=== PATIENT | male | born 1965 | race Caucasian/White ===

== ENCOUNTER 2024-11-13 14:26 | Inpatient (IN) | payer OTHER ==
[~2024-11-13] VITALS: Ht 172.7 cm; Wt 68.2 kg
[2024-11-13 17:35] LABS: BASOPHILS % (AUTO) 0.8 % (0.0-2.0); EOSINOPHILS % (AUTO) 1.9 % (1.0-6.0); HEMATOCRIT 44.4 % (41-53); HEMOGLOBIN 15.2 g/dL (13.5-17.5); LYMPHOCYTES # (AUTO) 1.4 K/uL (1.0-4.8); LYMPHOCYTES % (AUTO) 17.5 % (22.0-44.0); MEAN CORPUSCULAR HEMOGLOBIN 31.7 pg (26.0-34.0); MEAN CORPUSCULAR HGB CONC 34.2 G/dL (31.0-37.0); MEAN CORPUSCULAR VOLUME 92 fL (80-100); MONOCYTES # (AUTO) 0.8 K/uL (0.1-1.0); MONOCYTES % (AUTO) 10.2 % (2.0-9.0); NEUTROPHILS # (AUTO) 5.5 K/uL (1.8-7.7); NEUTROPHILS % (AUTO) 69.6 % (40.0-70.0); PLATELET COUNT (AUTO) 233 K/uL (150-450); RED BLOOD CELL COUNT(AUTO) 4.81 MIL/uL (4.50-5.90); RED CELL DISTRIBUTION WIDTH 13.9 % (11.5-14.5); WHITE BLOOD COUNT (AUTO) 7.8 K/uL (4.5-11.0)
[2024-11-13 17:45] LABS: ANION GAP 11 mmol/L (8-16); CALCIUM, TOTAL 9.3 mg/dL (8.8-10.5); CARBON DIOXIDE 28 mmol/L (22-29); CHLORIDE 103 mmol/L (98-107); CREATININE 1.09 mg/dL (0.60-1.30); GLOMERULAR FILTR. RATE CALC > 60 mL/min (>60); GLUCOSE,RANDOM 76 mg/dL (70-110); POTASSIUM 3.9 mmol/L (3.5-5.1); SODIUM SERUM 142 mmol/L (136-145); UREA NITROGEN, BLOOD 19 mg/dL (7-18)
[2024-11-13 17:48] LABS: ALANINE AMINOTRANSFERASE 57 U/L (12-78); ALBUMIN 3.8 g/dL (3.4-5.0); ALKALINE PHOSPHATASE 65 U/L (46-116); ASPARTATE AMINOTRANSFERASE 55 U/L (15-37); BILIRUBIN,TOTAL 2.2 mg/dL (0.1-1.0); CREATINE KINASE, TOTAL ONLY 301 U/L (39-308); TOTAL PROTEIN, SERUM 6.9 g/dL (6.4-8.2)
[2024-11-13 17:50] LABS: LACTIC ACID 1.7 mmol/L (0.4-2.0)
[2024-11-13 17:55] LABS: ALCOHOL, BLOOD (SERUM) < 3 mg/dL (0-10)
[2024-11-13 17:56] LABS: TROPONIN I-HIGH SENSITIVITY 747 ng/L (<76)
[2024-11-13] MEDS ORDERED: HEPARIN SODIUM,PORCINE 5,000 UNITS/ML VIAL IVP ONE (18:30)
[2024-11-13] MEDS ORDERED: HEPARIN SODIUM,PORCINE 5,000 UNITS/ML VIAL IVP PRN (18:30)
[2024-11-13 18:40] LABS: PROTHROMBIN TIME 10.9 SEC (9.4-11.6)
[2024-11-13] MEDS: HEPARIN SODIUM,PORCINE 5,000 UNITS/ML VIAL IVP ONE (18:48)
[2024-11-13] MEDS: HEPARIN SODIUM 25000 UNITS/D5W 250 ML IV PRN (18:52)
[2024-11-13] MEDS: LORazepam 2 MG/ML VIAL IM ONE (19:52)
[2024-11-13 20:13] LABS: COVID AG,FIA SOURCE NASAL SWAB
[2024-11-13 20:33] LABS: SARS-COV2 (COVID) ANTIGEN,FIA Negative (Negative)
[2024-11-13] MEDS ORDERED: ZOLPIDEM TARTRATE 5 MG TABLET PO PRN (21:30)
[2024-11-13] MEDS ORDERED: MAGNESIUM HYDROXIDE SUSPENSION 30 ML UDCUP PO PRN (21:30)
[2024-11-13] MEDS ORDERED: BISACODYL 10 MG RECTAL RECTAL SUPPOSITORY PR PRN (21:30)
[2024-11-13] MEDS ORDERED: HYDROCODONE/ACETAMINOPHEN 5-325 MG TABLET PO PRN (21:30)
[2024-11-13] MEDS ORDERED: ACETAMINOPHEN 325 MG TABLET PO PRN (21:30)
[2024-11-13] MEDS ORDERED: ONDANSETRON HCL 4 MG/2 ML VIAL IVP PRN (21:30)
[2024-11-13] MEDS ORDERED: MORPHINE SULFATE 2 MG/ML SYRINGE IVP PRN (21:30)
[2024-11-13 22:32] LABS: TROPONIN I-HIGH SENSITIVITY 659 ng/L (<76)
[2024-11-14 00:10] VITALS: BP 120/88; PULSE 63; RESP 18; TEMP 98.2; O2SAT 98
[2024-11-14 04:10] VITALS: BP 122/90; PULSE 60; RESP 18; TEMP 98.4; O2SAT 98
[2024-11-14] MEDS ORDERED: LORazepam 2 MG/ML VIAL IM ONE (04:30)
[2024-11-14 08:07] VITALS: BP 114/73; PULSE 73; RESP 18; TEMP 97.7; O2SAT 100
[2024-11-14] MEDS: ASPIRIN 81 MG CHEWABLE TABLET PO SCH (08:40)
[2024-11-14] MEDS: PANTOPRAZOLE SODIUM 40 MG DR TABLET PO SCH (08:40)
[2024-11-14 09:15] LABS: WHITE BLOOD COUNT (AUTO) 6.1 K/uL (4.5-11.0)
[2024-11-14 09:16] LABS: BASOPHILS % (AUTO) 0.9 % (0.0-2.0); EOSINOPHILS % (AUTO) 1.4 % (1.0-6.0); HEMATOCRIT 44.3 % (41-53); HEMOGLOBIN 15.4 g/dL (13.5-17.5); LYMPHOCYTES # (AUTO) 0.7 K/uL (1.0-4.8); LYMPHOCYTES % (AUTO) 11.5 % (22.0-44.0); MEAN CORPUSCULAR HEMOGLOBIN 31.9 pg (26.0-34.0); MEAN CORPUSCULAR HGB CONC 34.9 G/dL (31.0-37.0); MEAN CORPUSCULAR VOLUME 92 fL (80-100); MONOCYTES # (AUTO) 0.5 K/uL (0.1-1.0); MONOCYTES % (AUTO) 8.1 % (2.0-9.0); NEUTROPHILS # (AUTO) 4.8 K/uL (1.8-7.7); NEUTROPHILS % (AUTO) 78.1 % (40.0-70.0); PLATELET COUNT (AUTO) 222 K/uL (150-450); RED BLOOD CELL COUNT(AUTO) 4.84 MIL/uL (4.50-5.90); RED CELL DISTRIBUTION WIDTH 13.9 % (11.5-14.5)
[2024-11-14 09:21] LABS: CHOL/HDL RATIO 2.1 (4.2-7.3)
[2024-11-14 09:28] LABS: TROPONIN I-HIGH SENSITIVITY 576 ng/L (<76)
[2024-11-14 09:39] LABS: ANION GAP 6 mmol/L (8-16); CALCIUM, TOTAL 8.7 mg/dL (8.8-10.5); CARBON DIOXIDE 28 mmol/L (22-29); CHLORIDE 106 mmol/L (98-107); CREATININE 1.01 mg/dL (0.60-1.30); GLOMERULAR FILTR. RATE CALC > 60 mL/min (>60); GLUCOSE,RANDOM 89 mg/dL (70-110); SODIUM SERUM 140 mmol/L (136-145); UREA NITROGEN, BLOOD 16 mg/dL (7-18)
[2024-11-14] MEDS: HEPARIN SODIUM,PORCINE 5,000 UNITS/ML VIAL IVP PRN (09:46)
[2024-11-14 11:41] VITALS: BP 136/90; PULSE 77; RESP 16; TEMP 97.7; O2SAT 99
[2024-11-14 12:01] LABS: TROPONIN I-HIGH SENSITIVITY 634 ng/L (<76)
[2024-11-14] MEDS ORDERED: ASPI81TA87 PO (15:02)
[2024-11-14] MEDS ORDERED: CALC60CR6 TP (15:02)
[2024-11-14] MEDS ORDERED: ATOR40TA28 PO (15:02)
[2024-11-14] MEDS ORDERED: BISA10SU11 PR (15:28)
[2024-11-14] MEDS ORDERED: NICO-703 TD (15:29)
[2024-11-14] MEDS ORDERED: TICA60TA PO (15:29)
[2024-11-14] MEDS ORDERED: ACET-2247 PO (15:29)
[2024-11-14] MEDS ORDERED: SERT-162 PO (15:29)
[2024-11-14] MEDS ORDERED: MULT-248 PO (15:29)
[2024-11-14] MEDS ORDERED: METO25 PO (15:29)
[2024-11-14] MEDS ORDERED: MIRT-89 PO (15:29)
[2024-11-14] MEDS ORDERED: ERGO500054 PO (15:29)
[2024-11-14] MEDS ORDERED: MINE133E26 PR (15:29)
[2024-11-14] MEDS ORDERED: CHOL500013 PO (15:29)
[2024-11-14] MEDS ORDERED: SACU1TAB PO (15:29)
[2024-11-14] MEDS ORDERED: MAGN-169 PO (15:29)
[2024-11-14] MEDS ORDERED: DIGO125T84 PO (15:29)
[2024-11-14 16:06] VITALS: BP 146/91; PULSE 72; RESP 17; TEMP 98.2; O2SAT 99
[2024-11-14 20:00] VITALS: BP 148/108; PULSE 83; RESP 17; TEMP 97.5; O2SAT 98
[2024-11-14] MEDS: DOCUSATE SODIUM 100 MG CAPSULE PO SCH (21:00)
[2024-11-14] MEDS: SACUBITRIL/VALSARTAN 24-26 MG TABLET PO SCH (21:15)
[2024-11-14] MEDS: ATORVASTATIN CALCIUM 20 MG TABLET PO SCH (21:16)
[2024-11-15] VITALS (7 sets, daily range): BP systolic 123–157; BP diastolic 83–100; PULSE 63–82; RESP 16–18; TEMP 97.5–98.4; O2SAT 97–100
[2024-11-15 06:18] LABS: BASOPHILS % (AUTO) 0.9 % (0.0-2.0); EOSINOPHILS % (AUTO) 2.4 % (1.0-6.0); HEMATOCRIT 45.1 % (41-53); HEMOGLOBIN 15.7 g/dL (13.5-17.5); LYMPHOCYTES % (AUTO) 17.2 % (22.0-44.0); MEAN CORPUSCULAR HEMOGLOBIN 31.8 pg (26.0-34.0); MEAN CORPUSCULAR HGB CONC 34.8 G/dL (31.0-37.0); MEAN CORPUSCULAR VOLUME 91 fL (80-100); MONOCYTES # (AUTO) 0.6 K/uL (0.1-1.0); MONOCYTES % (AUTO) 10.5 % (2.0-9.0); NEUTROPHILS # (AUTO) 3.9 K/uL (1.8-7.7); PLATELET COUNT (AUTO) 229 K/uL (150-450); RED BLOOD CELL COUNT(AUTO) 4.94 MIL/uL (4.50-5.90); WHITE BLOOD COUNT (AUTO) 5.7 K/uL (4.5-11.0)
[2024-11-15 06:31] LABS: ANION GAP 12 mmol/L (8-16); CALCIUM, TOTAL 8.9 mg/dL (8.8-10.5); CARBON DIOXIDE 24 mmol/L (22-29); CHLORIDE 105 mmol/L (98-107); CREATININE 0.86 mg/dL (0.60-1.30); GLOMERULAR FILTR. RATE CALC > 60 mL/min (>60); GLUCOSE,RANDOM 79 mg/dL (70-110); POTASSIUM 3.8 mmol/L (3.5-5.1); SODIUM SERUM 141 mmol/L (136-145); UREA NITROGEN, BLOOD 13 mg/dL (7-18)
[2024-11-15] MEDS: METOPROLOL TARTRATE 25 MG TABLET PO SCH (08:09)
[2024-11-15] MEDS: DIGOXIN 125 MCG TABLET PO SCH (08:10)
[2024-11-15] MEDS: METOPROLOL SUCCINATE 50 MG ER TABLET PO SCH (13:11)
[2024-11-15 13:49] LABS: TROPONIN I-HIGH SENSITIVITY 646 ng/L (<76)
[2024-11-15] MEDS: SACUBITRIL/VALSARTAN 49-51 MG TABLET PO SCH (20:26)
[2024-11-16 03:48] VITALS: BP 144/98; PULSE 64; RESP 18; TEMP 97.9; O2SAT 98
[2024-11-16 06:38] LABS: BASOPHILS % (AUTO) 0.6 % (0.0-2.0); EOSINOPHILS % (AUTO) 1.8 % (1.0-6.0); HEMATOCRIT 46.3 % (41-53); HEMOGLOBIN 16.1 g/dL (13.5-17.5); LYMPHOCYTES # (AUTO) 0.9 K/uL (1.0-4.8); LYMPHOCYTES % (AUTO) 13.9 % (22.0-44.0); MEAN CORPUSCULAR HEMOGLOBIN 31.6 pg (26.0-34.0); MEAN CORPUSCULAR HGB CONC 34.9 G/dL (31.0-37.0); MEAN CORPUSCULAR VOLUME 91 fL (80-100); MONOCYTES # (AUTO) 0.7 K/uL (0.1-1.0); MONOCYTES % (AUTO) 10.8 % (2.0-9.0); NEUTROPHILS # (AUTO) 4.5 K/uL (1.8-7.7); NEUTROPHILS % (AUTO) 72.9 % (40.0-70.0); PLATELET COUNT (AUTO) 233 K/uL (150-450); RED CELL DISTRIBUTION WIDTH 13.6 % (11.5-14.5); WHITE BLOOD COUNT (AUTO) 6.2 K/uL (4.5-11.0)
[2024-11-16 06:59] LABS: ALANINE AMINOTRANSFERASE 41 U/L (12-78); ALBUMIN 3.5 g/dL (3.4-5.0); ALKALINE PHOSPHATASE 61 U/L (46-116); ANION GAP 8 mmol/L (8-16); ASPARTATE AMINOTRANSFERASE 36 U/L (15-37); BILIRUBIN,TOTAL 1.6 mg/dL (0.1-1.0); CALCIUM, TOTAL 9.2 mg/dL (8.8-10.5); CARBON DIOXIDE 27 mmol/L (22-29); CHLORIDE 104 mmol/L (98-107); CREATININE 0.78 mg/dL (0.60-1.30); GLOMERULAR FILTR. RATE CALC > 60 mL/min (>60); GLUCOSE,RANDOM 96 mg/dL (70-110); POTASSIUM 3.7 mmol/L (3.5-5.1); SODIUM SERUM 139 mmol/L (136-145); TOTAL PROTEIN, SERUM 6.6 g/dL (6.4-8.2); UREA NITROGEN, BLOOD 12 mg/dL (7-18)
[2024-11-16 07:04] LABS: TROPONIN I-HIGH SENSITIVITY 528 ng/L (<76)
[2024-11-16 07:29] VITALS: BP 151/90; PULSE 68; RESP 18; TEMP 97.7; O2SAT 98
[2024-11-16 11:32] VITALS: BP 142/92; PULSE 68; RESP 20; TEMP 97.9; O2SAT 98
== END 2024-11-16 15:25 | DRG 190 ==
LOC: EMS 14:26 → EDH 21:20 → 5S 23:50
PROVIDERS: ADMIT Internal Medicine; ATTEND Internal Medicine
PROC: 4B02XTZ Measurement of Cardiac Defibrillator, External Approach (ICD-10-PCS; principal; 2024-11-16)
DX: I21.4 Non-ST elevation (NSTEMI) myocardial infarction (principal); G93.41 Metabolic encephalopathy; F33.1 Major depressive disorder, recurrent, moderate; I47.10 Supraventricular tachycardia, unspecified; I10 Essential (primary) hypertension; I48.0 Paroxysmal atrial fibrillation; Z20.822 Contact with and (suspected) exposure to COVID-19; E78.00 Pure hypercholesterolemia, unspecified; F41.9 Anxiety disorder, unspecified; I25.10 Atherosclerotic heart disease of native coronary artery without angina pectoris; I25.5 Ischemic cardiomyopathy; I25.2 Old myocardial infarction; I69.320 Aphasia following cerebral infarction; I69.328 Other speech and language deficits following cerebral infarction; Z79.82 Long term (current) use of aspirin; Z95.810 Presence of automatic (implantable) cardiac defibrillator; Z79.899 Other long term (current) drug therapy; Z88.0 Allergy status to penicillin
CPT/HCPCS: 70450; 71045; 80048; 80053; 80061; 80076; 82140; 82550; 83605; 84484; 85025; 85610; 85730; 93005; 93306; 96372; 96374; 97161; 97166; 97530; 97535; 99291; G0378; G0480; J1644; J2060; 36415-L1; 36415-TC